=== PATIENT | female | born 1940 | race Caucasian/White ===

== ENCOUNTER → 2019-08-09 11:06 | Outpatient (CLI) | payer MEDICARE, OTHER, SELFPAY ==
--- NOTE | 2019-08-09 11:11 | DI.MG.S_ITS ---
BILATERAL DIGITAL SCREENING MAMMOGRAM 3D/2D WITH CAD: 08/09/2019 CLINICAL: Routine screening. Comparison is made to exams dated: 06/12/2018 mammogram, 06/06/2017 mammogram, and 06/02/2016 mammogram - [facility]. The tissue of both breasts is extremely dense, which lowers the sensitivity of mammography. Current study was also evaluated with a Computer Aided Detection (CAD) system. There is an asymmetry in the right breast middle depth superior region seen on the mediolateral oblique view only. This is more prominent. There is possible architectural distortion associated with the asymmetry. No other significant masses, calcifications, or other findings are seen in either breast. IMPRESSION: INCOMPLETE: NEEDS ADDITIONAL IMAGING EVALUATION The asymmetry in the right breast is indeterminate. Additional views with possible ultrasound are recommended. This exam was interpreted at Station ID: [id number]. NOTE: For mammograms, a report in lay terms will be sent to the patient. Approximately 15% of breast malignancies will not be visualized mammographically. In the management of a palpable breast mass, a negative mammogram must not discourage biopsy of a clinically suspicious lesion. Electronically Signed By: Margarita whalen/:08/09/2019 13:04:38 letter sent: Additional Imaging Needed ACR BI-RADS Category 0: Incomplete [id number]
--- NOTE | 2019-08-09 11:12 | DI.US.S_ITS ---
PROCEDURE: US THYROID INDICATIONS: MULTINODULAR GOITER TECHNIQUE: Real-time scanning was performed of the thyroid gland, with image documentation. COMPARISON: None. FINDINGS: Right: Thyroid lobe measures 4.3 x 1.7 x 1.8 cm, and is homogeneous in echotexture. Left: Absent Isthmus: 4 mm thick. Nodule number: 1 Location: Right interpolar region Size: 1.1 x 0.9 x 1.2 cm. Composition: Predominantly solid Echogenicity: Hypoechoic Shape: wider than tall. Margins: Irregular Echogenic foci: Macrocalcifications Total points: 7 ACR TI-RADS category: Highly suspicious Nodule number: 2 Location: Right mid to inferior pole Size: 1.4 x 0.8 x 1.3 cm. Composition: Predominantly cystic Echogenicity: Hypoechoic Shape: wider than tall. Margins: Smooth Echogenic foci: Punctate Total points: 5 ACR TI-RADS category: Highly suspicious IMPRESSION: A pair of right-sided thyroid cystic and solid nodules. Both of these warrant ultrasound-guided FNA by consensus recommendations below. ACR TI-RADS definitions and recommendations: TI-RADS 1 (benign): 0 points. FNA not needed. TI-RADS 2 (not suspicious): 2 points. FNA not needed. TI-RADS 3 (mildly suspicious): 3 points. * FNA if 2.5 cm or larger, follow up if 1.5 cm or larger (at 1, 3, and 5 years). TI-RADS 4 (moderately suspicious): 4-6 points. * FNA if 1.5 cm or larger, follow up if 1 cm or larger (at 1, 2, 3, and 5 years). TI-RADS 5 (highly suspicious): 7 points or more. * FNA if 1 cm or larger, follow up if 0.5 cm or larger (every year for 5 years). Dictated by: Cristhian Cain M.D. on 08/09/2019 at 17:08 Approved by: Cristhian Cain M.D. on 08/09/2019 at 17:15
== END ==
PROVIDERS: Family Provider Internal Medicine; PCP Internal Medicine; Referring Provider Internal Medicine; Visit Provider Internal Medicine
DX: Z12.31 Encounter for screening mammogram for malignant neoplasm of breast (principal); E04.2 Nontoxic multinodular goiter
CPT/HCPCS: 76536; 77063; 77067

== ENCOUNTER → 2019-09-16 09:56 | Outpatient (CLI) | payer MEDICARE, OTHER, SELFPAY ==
--- NOTE | 2019-09-16 | PATH_ITS ---
Note [facility] Accession Number: [id number] TESTS RESULT FLAG UNITS REF RANGE LAB Clinician Provided Cytology Information No. of containers..00 Previously Prepared Cytology Slide 35 Unknown Storage/container code(s) 01 RIGHT SUPERIOR THYRO Clinician ICD10: Z00.00 I10 R25.2 H91.90 N76.19 G45.9 M19.90 E04.2 E02 E78.5 R73.9 D64.9 DIAGNOSIS: 01 RIGHT SUPERIOR THYROID NODULE NEGATIVE FOR MALIGNANT CELLS. [place] CATEGORY II. SPECIMEN IS OF LOW CELLULARITY AND CONSISTS OF OF BENIGN FOLLICULAR CELLS WITH ABUNDANT COLLOID CONSISTENT WITH A COLLOID NODULE. Pathologist ICD10: E04.1 . Lia Orona MD, Pathologist NPI- [id number] Bill Pop, Dish Washer ([facility]) 01 30 CC, COLORLESS, CLEAR RECIEVED: IN CYTOLYT WITH 5 ALCOHOL FIXED AND 5 QUICK STAINED SLIDES ALSO 1 RNA VIAL WAS RECEIVED FOR FURTHER TESTING. /VDU 09/17/2019 0436 Local FLAG LEGEND: L-Low Normal,H-High Normal,LL-Alert Low,HH-Alert High <-Panic Low,>-Panic High,A-Abnormal,AA-Critical Abnormal Performed at: 01 =Z [facility] [address], [place] [address] Nayan Moore MD, Performed at: 01 [facility] [address], [place], [place] [id number] MD Nayan Moore MD Phone: [phone]
--- NOTE | 2019-09-16 | DI.US.S_ITS ---
PROCEDURE: US FINE NEEDLE ASPIRATION INDICATIONS: RIGHT THYROID NODULES X 2 History of left thyroidectomy. Patient reports benign pathology on the left. TECHNIQUE: The indications, alternatives, benefits, risks, and complications of the procedure were explained to the patient. Written informed consent was obtained and placed in the chart. The area of interest was examined sonographically and a site was chosen for ultrasound guided percutaneous sampling. The skin was prepared and draped in the usual fashion, and anesthetized with 1% lidocaine infiltrated from the skin down to the lesion. Multiple passes were then performed, with contents emptied into an appropriate pathology specimen container. A bandage was applied to the area of access at completion of the study. COMPARISON: [facility], , US THYROID, 08/09/2019, 11:36. [facility], , THYROID, 07/02/2012, 14:54. [facility], , US THYROID, 06/22/2010, 10:53. FINDINGS: Location(s) of lesion(s) sampled: Right intrapolar and right inferior. [place]: 25 gauge hypodermic needles. Number of passes: 5. The right inferior nodule collapsed with aspiration yielded sanguinous fluid. Medications: 1% lidocaine for local anaesthesia. Complications: None. The procedure was difficult with the patient inability to stop swallowing. IMPRESSION: Successful ultrasound-guided fine needle aspiration of two right thyroid nodules, with cytology results pending. Dictated by: Rod Little M.D. on 09/16/2019 at 15:34 Approved by: Rod Little M.D. on 09/16/2019 at 15:38
--- NOTE | 2019-09-16 | DI.MG.S_ITS ---
UNILATERAL RIGHT DIGITAL DIAGNOSTIC MAMMOGRAM 3D/2D WITH ADDITIONAL VIEWS: 09/16/2019 CLINICAL: Additional evaluation requested from prior study. Comparison is made to exams dated: 08/09/2019 mammogram - [facility], 06/12/2018 mammogram, and 06/06/2017 mammogram - [facility]. The tissue of right breast is extremely dense, which lowers the sensitivity of mammography. The asymmetry in the right breast middle depth superior region seen on the mediolateral oblique view only is not seen in additional views. No other significant masses or calcifications are seen in the breast. IMPRESSION: The asymmetry in the right breast seen on the screening mammogram likely respresents superimposed fibroglandular tissue and is benign. There is no mammographic evidence of malignancy. A 1 year screening mammogram is recommended. This exam was interpreted at Station ID: [id number]. NOTE: For mammograms, a report in lay terms will be sent to the patient. Approximately 15% of breast malignancies will not be visualized mammographically. In the management of a palpable breast mass, a negative mammogram must not discourage biopsy of a clinically suspicious lesion. Electronically Signed By: Lynne barriga/:09/16/2019 11:01:35 letter sent: Normal Exam ACR BI-RADS Category 2: Benign Finding(s) 3342F
== END ==
PROVIDERS: Family Provider Internal Medicine; PCP Internal Medicine; Referring Provider Internal Medicine; Visit Provider Internal Medicine
DX: E04.2 Nontoxic multinodular goiter (principal); R92.8 Other abnormal and inconclusive findings on diagnostic imaging of breast; N64.89 Other specified disorders of breast
CPT/HCPCS: 10005; 77065; G0279

== ENCOUNTER → 2020-04-14 11:53 | Outpatient (CLI) | payer MEDICARE, OTHER, SELFPAY ==
[2020-04-14 14:02] LABS: Add Manual Diff / Slide Review NO; Basophils Absolute Auto 0 /uL (0-100); Basophils Percent Auto 0.9 % (0-2); Eosinophils Absolute Auto 100 /uL (0-450); Eosinophils Percent Auto 2.2 % (2-4); Hematocrit 37.3 % (36-46); Hemoglobin 12.6 g/dL (12.0-16.0); Lymphocytes Absolute Auto 900 /uL (1100-4500); Lymphocytes Percent Auto 16.7 % (25-40); Mean Corpuscular HGB Conc 33.8 % (30-36); Mean Corpuscular Hemoglobin 32.8 PG (26-34); Mean Corpuscular Volume 97.1 fL (80-100); Monocytes Absolute Auto 300 /uL (0-900); Monocytes Percent Auto 6.1 % (3-14); Neutrophils Absolute Auto 4100 /uL (1500-7000); Neutrophils Percent Auto 74.1 % (50-75); Platelet Count 259 X10^3/uL (150-400); Red Blood Cell Count 3.84 X10^6/uL (4.0-5.2); Red Cell Distribution Width 12.1 % (11.6-14.8); White Blood Cell Count 5.5 X10^3/uL (4.5-11.0)
[2020-04-14 14:14] LABS: Hemoglobin A1C% w Est Avg Glu 5.3 % (4.0-6.0)
[2020-04-14 14:19] LABS: BUN Creatinine Ratio 26.4 (6-22); Blood Urea Nitrogen 14 mg/dL (7-17); Calcium 9.7 mg/dL (8.4-10.2); Carbon Dioxide 29 mmol/L (22-32); Chloride 95 mmol/L (98-107); Estimated Glomerular Filt Rate > 60.0 mL/min (>60); Glucose 95 mg/dL (80-110); HEMOLYSIS < 15 (0-50); Potassium 4.1 mmol/L (3.4-5.1); Sodium 130 mmol/L (137-145)
== END ==
PROVIDERS: Family Provider Internal Medicine; PCP Internal Medicine; Referring Provider Orthopaedic Surgery; Visit Provider Orthopaedic Surgery
DX: Z01.818 Encounter for other preprocedural examination (principal); M25.512 Pain in left shoulder; R73.9 Hyperglycemia, unspecified; Z01.812 Encounter for preprocedural laboratory examination
CPT/HCPCS: 36415; 80048; 83036; 85025; 93005

== ENCOUNTER 2020-04-27 11:31 | Day surgery (SDC) | payer MEDICARE, OTHER, SELFPAY ==
[2020-04-20 09:47] VITALS: BMI 21.1
[2020-04-27] VITALS (13 sets, daily range): BP systolic 120–180; BP diastolic 54–95; PULSE 67–99; RESP 12–20; TEMP 35.8–37.2; O2SAT 96–99; BMI 21.1
--- NOTE | 2020-04-27 06:00 | DI.RAD.S_ITS ---
PROCEDURE: XR KNEE LT 1TO2V INDICATIONS: post op films. TECHNIQUE: 2 view(s) of the knee acquired. COMPARISON: [facility], , KNEE 1-2 VIEWS RIGHT, 08/02/2011, 14:11. FINDINGS: Bones: Patient is status post knee joint arthroplasty. Hardware components are in expected positions. Visualized bony structures are intact. Soft tissues: Overlying postoperative changes are noted. IMPRESSION: Normal alignment after left total knee arthroplasty. Dictated by: Mario Pop M.D. on 04/27/2020 at 16:12 Approved by: Mario Pop M.D. on 04/27/2020 at 16:12
[2020-04-27] MEDS: LACTATED RINGERS 1,000 ML 42 ML IV ×2 (11:56→14:12)
[2020-04-27] MEDS: ACETAMINOPHEN 325 MG TABLET 975 MG PO (12:07)
[2020-04-27] MEDS: MELOXICAM 7.5 MG TABLET 15 MG PO (12:09)
[2020-04-27] MEDS: PREGABALIN 75 MG CAPSULE PO (12:11)
--- NOTE | 2020-04-27 12:17 | SUR.PREOP ---
Awaiting the Covid results from Dr. Castro' office
[2020-04-27 13:02] LABS: COVID19 -Nasal RAPID Negative (Negative)
--- NOTE | 2020-04-27 13:06 | PM.PREOP ---
Pre-operative Note COVID-19 COVID-19 status: Negative Result date/Date tested (Pos, Neg/Pending): 04/27/20 Interval Note History & Physical reviewed/Exam performed by Physician: Yes Changes to H&P: No
--- NOTE | 2020-04-27 13:07 | PM.OP.1 ---
Operative Date/Time/Diagnoses Date of procedure: 04/27/20 Time of procedure: 14:55 Pre-op diagnosis: Left knee osteoarthritis Post-op diagnosis: same Procedure & Clinicians Procedure: Left total knee replacement Same procedure as scheduled: Yes Indications: The patient has had progressively worsening left knee pain with radiographic changes consistent with arthritis. Non-operative management has failed and the patient has requested total knee replacement. The risks, benefits and alternatives to surgery were discussed with the patient prior to proceeding. Risks discussed included, but were not limited to, failure to relieve pain, stiffness, infection, nerve damage, deep venous thrombosis, pulmonary embolism, stroke, coma, heart attack, permanent paralysis and , as well as the potential need for eventual revision of the prosthetic. Surgeon: Davin Castro V Block Saw Operator: Yvette Benjamin Anesthesia Type: General, Spinal and Local Operative Notes Findings: Severe medial and moderate patellofemoral osteoarthritis. Closure Type: primary Specimen(s): none sent Prosthetic devices, grafts, tissues, transplants, or devices: Implants used in this procedure were manufactured by the [employer] and [employer] and included the BCS II Journey total knee replacement with a size 5 cobalt chromium femur, size 4 left non porous tibial base plate, a 9 mm cross-linked polyethylene tibial insert and a 32 mm oval Maria Luisa II patellar component. Applied: implant(s) Estimated Blood Loss (mL): 25 Blood products transfused: none Tourniquet time (min): 46 Procedure in detail: The patient was seen in the pre-operative area, where the left knee was identified as the operative site and this was marked with my initials. The patient received pre-operative antibiotics, and was taken to the operating room and placed on the operative table in the supine position. After satisfactory anesthesia, a flight crew time clerk out was performed. The left leg was encircled with a tourniquet about the proximal thigh, and the leg was prepared from the toes to the tourniquet with ChloroPrep in the usual fashion and draped through sterile drapes. The leg was elevated and exsanguinated with Eschmark bandage and the tourniquet inflated to 250 mmHg pressure. The knee was approached through an approximately 18 cm incision centered over the patella and carried into the knee through a medial parapatellar arthrotomy. The anterior osteophytes and soft tissues were removed. The rotational landmarks of Jayuya's line and the transepicondylar axis were marked on the femur with electrocautery, and intramedullary guide holes for the femur and tibia were created. The distal femoral cut was made in 6 degrees of valgus using the intramedullary guide at the primary cut setting. The proximal tibial cut was then made using the intramedullary guide, taking 9 mm of bone off the less involved side. The extension gap was checked and the rotation of the femoral component confirmed with the gap balancing blocks. The anterior, posterior and chamfer cuts were then made. The posterior osteophytes and soft tissues were then removed. The posterior capsule was injected with part of a mixture of 55 ml 0.25% Marcaine mixed with 20 ml Exparel and 4 mg of morphine for post-operative pain control. The remainder of this mixture was injected into the capsule and subcutaneous tissues during cement curing. The tibia was prepared with the rotation set by an extra medullary guide. Trial tibial and femoral components were then placed and the intercondylar notch cut through the femoral trial. Range of motion was 0-135 degrees, with good stability throughout the range. The patella was then cut to accommodate the patellar prosthetic. There was no need for a lateral release. The trials were then removed, and the femoral hole plugged with a bone plug. The bone was prepared with pulsatile lavage, and dried with a sponge. Cement was applied and the final prosthetics placed. Excess cement was removed during and after cement curing. After confirming there was no extruded cement posteriorly, the final tibial insert was placed. The knee was copiously irrigated and the tourniquet deflated. Hemostasis was obtained. The capsule was closed with interrupted # 2 polyester sutures. The subcutaneous layer was closed with 3-0 Vicryl, and the skin with a running 3-0 V-Lock suture and Dermabond. An Aquacel Ag dressing was applied and the patient was taken to recovery having tolerated the procedure well. Complications: none Post-operative Condition: stable Disposition: PACU Plan for aftercare: The patient will be maintained on a standard total knee replacement protocol with weight bearing as tolerated. The patient will receive aspirin and sequential compression devices for DVT prophylaxis. The patient will be discharged home when safe for the home environment.
[2020-04-27] MEDS: CEFAZOLIN 2 GM/100 ML FROZ.PIGGY IV (13:15)
--- NOTE | 2020-04-27 13:38 | SUR.OPER ---
Supine on padded OR bed. Pillow under head, arms secured on padded armboards <90 degree abduction. Safety belt across torso. Non-operative leg secured with tape over blanket over lower leg. Operative leg secured in [place]/Prosper positioner. Foam padded brace at thigh of operative leg.
[2020-04-27] MEDS: TRANEXAMIC ACID 1,000 MG VIAL 1000 MG IV ×2 (13:43→14:13)
[2020-04-27] MEDS: BUPIVACAINE 0.25% W/ EPI (PF) 10 ML VIAL 20 ML INJ (13:44)
[2020-04-27] MEDS: BUPIVACAINE LIPOSOME 266 MG/20 ML VIAL INJ (13:45)
[2020-04-27] MEDS: MORPHINE 4 MG/ML INJ INJ (13:45)
--- NOTE | 2020-04-27 15:17 | SUR.PHASEI ---
Report given to AASHISH Vick and care hodan.
[2020-04-27] MEDS: LACTATED RINGERS 1,000 ML 100 ML IV (16:06)
--- NOTE | 2020-04-27 16:57 | PC.NURSE ---
Addendum entered by Yennifer Shah R.N. 04/27/20 20:59: Pt watching TV, denies discomfort. Dsg remains CDI IVF continue as per orders. SCD in place. Satisfactory post op course. Call light w/in reach, bed alarm on for pt safety. Continue w/plan of care. Original Note: Arrived from PACU @ 1550 Alert, oriented. Denies discomfort at this time. Aquacell/brady dsg to left knee CDI. Lungs clear, SpO2 96% RA Stable post op course. Calll light w/in reach, bed alarm on for pt safety.
--- NOTE | 2020-04-27 18:10 | PT.IIE ---
Current Diagnoses Unilateral primary osteoarthritis, left knee (04/27/20) Surgery Performed Operation Date: 04/27/20 12:45 Actual Procedures p Total Knee Arthroplasty(Left) - Davin Castro MD Surgical History (Last Updated 04/20/20 @ 10:10 by Analy Slater, RN) History of arthroplasty of right knee (2011) History of colonoscopy History of lumbar surgery (2002) History of lumpectomy of left breast History of tonsillectomy and adenoidectomy Hx of arthroscopy of right knee (2008) Hx of bilateral cataract extraction Hx of left breast biopsy Hx of partial thyroidectomy (2006) Medical History (Last Updated 04/20/20 @ 10:14 by Analy Slater, RN) Arthritis Detached retina, bilateral DJD (degenerative joint disease) Dry eyes Easy bruisability HLD (hyperlipidemia) HTN (hypertension) Impaired hearing Seasonal allergies TIA (transient ischemic attack) (~2002) Physical Therapy Inpatient Evaluation/Re-Eval M1 PT/OT-IP Prior Functional Status Start: 04/27/20 17:59 Freq: NEEDED Status: Active Protocol: Document 04/27/20 17:59 [facility] (Rec: 04/27/20 18:10 [facility] [id number]) Medical Review Prior Functional Status Medical History Reviewed Yes Diet/Fluid Consistency Regular Communication AKHIOK Mobility and Gait Pt indep with ADLs and with mobility without AD Activities of Daily Living and IADL's indep & does most of cooking at home Social History Household Members spouse Living Arrangements House Number of Floors (Floors) 3 or More Floors Number of Stairs To Enter/Railing? 2 TRAY w/ rail; pt does not need to use basement or upper level of home Home Environment Standard Height Toilet,Walk in Shower Home Equipment Straight Cane,Raised Toilet Seat Without Armrests,Shower Seat without Backrest Additional Social History Comment Pt has standard walker M2 PT-IP Current Condition Start: 04/27/20 17:59 Freq: NEEDED Status: Active Protocol: Document 04/27/20 17:59 [facility] (Rec: 04/27/20 18:10 [facility] [id number]) Physical Therapy Current Condition Current Condition Evaluation Date 04/27/20 Treatment Diagnosis L TKA Onset Date 04/27/20 Weight Bearing Status Weight Bearing Status Weight Bear as Tolerated M3 PT-IP Subjective Start: 04/27/20 17:59 Freq: NEEDED Status: Active Protocol: Document 04/27/20 17:59 [facility] (Rec: 04/27/20 18:10 [facility] [id number]) Subjective Physical Therapy Visit Type Type Initial Evaluation Visit Start Time 17:20 Visit Stop Time 17:55 Total Visit Minutes 25 Number of PRODUCT SUPPORT CONSULTANT Visits 0 Physical Therapy Visit Comments Patient Comments Pt and note they plan to have her return home once she is ready but no goyal. Therapy Pain Assessment Pain When Pain Assessed During Mobility Pain Present Pain Present Pain Reported Location L knee Scale Used minor Pain Management Techniques Apply Cold M4 PT-IP Mobility and Gait Start: 04/27/20 17:59 Freq: NEEDED Status: Active Protocol: Document 04/27/20 17:59 [facility] (Rec: 04/27/20 18:10 [facility] [id number]) PT-Bed Mobility Assessment Supine to Sit Supine to Sit Standby Assistance,Head of Bed Elevated Scooting Scooting to Edge of Bed Standby Assistance PT-Transfer Assessment Sit to and From Stand Sit to and from Stand Contact Guard Assistance,Use of Upper Extremities Equipment Transfer Assistive Device Gait Belt,Standard Walker Orthotic/Prosthetic Devices or Brace: No Transfers Transfer Destination Bedside Commode Transfer Technique Stand Step Pivot Transfer Ability Level of Assist Contact Guard Assistance Comments Mobility Comments Pt sat up EOB with HOB elevated quickly and encourage to sit at EOB for a min to allow for body to adjust. BP 153/75-minor ligthheadedness noted but resolved. Pt transfered w/ cueing for pushing from bed & cueing for hand and knee position for sitting. Pt's walker was adjsuted to appropriate height while pt voided. Pt able to wipe indep and stood CGA to FWW an damb 5 ft to wash hands and stood at sink reaching safely then amb with FWW CGA back to chair noting some lightheadedness. BP 140/70. Pt able to don underwear indep with cueing for sequence then stood CGA to pull up indep. Pt left with call light in reach Gait Assessment Gait Gait Assistance Required: Contact Guard Assist Distance (Feet) 10 Able to Maintain Weight Bearing Status Yes During Gait Assistive Devices Assistive Device Gait Belt,Standard Walker Gait Deviations General Gait Pattern Antalgic Factors Limiting Gait Function Factors Limiting Gait Function Decreased Activity Tolerance, Decreased Strength,Limited Range of Motion,Pain,Poor Balance Comments Gait Comments see above Stair Climbing Assessment Comments Stair Climbing Comments not assessed PT-Balance Assessment Sitting Balance and Reactions Static Sitting Balance Ability Normal Dynamic Sitting Balance Ability Normal Standing Balance and Reactions Static Standing Balance Ability Good Dynamic Standing Balance Ability Fair Device Used FWW M5 PT-IP Objective Assessments Start: 04/27/20 17:59 Freq: NEEDED Status: Active Protocol: Document 04/27/20 17:59 [facility] (Rec: 04/27/20 18:10 [facility] [id number]) Orientation Orientation/Cognition Level of Alertness Alert Language Function Ability No Deficits Noted Safety Awareness Understands Safety Issues Memory Description No Deficits Noted Gross Range of Motion Lower Extremity ROM Assessment Left Impaired Impairments about 3-90 (seated flex testing) Strength Upper Extremity Strength Assessment Within Functional Limits Lower Extremity Strength Knee grossly 3/5 Ankle grossly 4/5 M6 PT-IP Treatment Start: 04/27/20 17:59 Freq: NEEDED Status: Active Protocol: Document 04/27/20 17:59 [facility] (Rec: 04/27/20 18:10 [facility] [id number]) Physical Therapy Treatment Exercises Exercises Ankle Pumps,Quad Sets Education Education Provided Post-Op Packet,Safety M7 PT-IP Assessment and Plan Start: 04/27/20 17:59 Freq: NEEDED Status: Active Protocol: Document 04/27/20 17:59 [facility] (Rec: 04/27/20 18:10 [facility] [id number]) PT Summary Assessment and Plan Potential Rehabilitation Potential Excellent Status of Condition at Evaluation Evolving Summary Impairments Pain,ROM,Strength,Balance,Bed Mobility,Transfers,Gait, Activity Tolerance Assessment Summary Pt presents day of L TKA with good performance on mobility with CGA only needed along with cueing. pt brougth standard walker and was trained on that as that is what she will use at home. She had some lightheadedness during moblity but BP did not drop significantly. She is very motivated to do well and showed understanding w/quad sets and APs. Pt would benefit from skilled PT to work on gait, mobility, and safety after TKA prior to returning home. Goals Bed Mobility Goal Independent Transfer Goal Independent Gait Goal Standby Assistance Gait Distance 150ftw/standard walker Other Goals up/down 2 steps with rail SBA Days to Meet Goals 4 Frequency of Treatment Frequency Of Treatment Twice a Day Treatment Plan Physical Therapy Treatment Plan Bed Mobility Training,Transfer Training,Gait Training, Therapeutic Exercise,Post Op Education,Discharge Planning, Neuromuscular Re-ed,Manual Therapy Other Recommendations and Next Treatment work on gait & work on stairs Focus if pt can, review all exercises Recommendations To Nursing Amount of Assist Needed 1 Person Assist Discharge Recommendations PT Discharge Recommendations Home with Assistance, Outpatient PT Transportation Needs at Discharge Private Vehicle
[2020-04-27] MEDS: ASPIRIN EC 81 MG TABLET PO (20:24)
[2020-04-27] MEDS: ACETAMINOPHEN 325 MG TABLET 650 MG PO (20:24)
[2020-04-27] MEDS: DOCUSATE 100 MG CAPSULE PO (20:24)
[2020-04-27] MEDS: PRAVASTATIN 20 MG TABLET 40 MG PO (20:25)
[2020-04-27] MEDS: SPIRONOLACTONE 25 MG TABLET PO (20:25)
--- NOTE | 2020-04-28 00:57 | PC.NURSE ---
Addendum entered by Karen Ruvalcaba R.N. 04/28/20 06:15: Complains of 4/10 left knee pain. Chart indicates Oxycodone adverse reaction although patient is uncertain that she has had reaction in past. Due to uncertainty, patient medicated with Vicodin rather than Percocet and ice pack applied to knee. Original Note: 9140 Patient is alert and oriented. [place] but states she left hearing aids at home. Breath sounds CTA with RA sat of 99%; on continuous oximetry. HRR. BP 140/63 but has been trending high. Denies nausea. BT present and abdomen is soft but denies having passed any flatus as yet. Chronic urinary frequency but denies dysuria or urgency. Is able to move herself in bed. Up to bathroom with walker and SBA. Aquacel dressing covered with brady wrap is CDI. CMS intact bilaterally. Does complain of 3/10 pain in left knee but declined offer of pain medicatioin at this time; ice pack applied. Wearing bilateral calf SCD's. Fall risk score is moderate and bed alarm is activated.
[2020-04-28] MEDS: LACTATED RINGERS 1,000 ML 100 ML IV (01:26)
[2020-04-28] MEDS: HYDROCODONE/ACET 5/325 TABLET 1 TAB PO ×2 (05:37→10:48)
[2020-04-28 05:55] VITALS: BP 139/63; PULSE 74; RESP 16; TEMP 36.8; O2SAT 97
[2020-04-28 06:24] LABS: Hematocrit 30.4 % (36-46); Hemoglobin 10.2 g/dL (12.0-16.0)
[2020-04-28 07:00] VITALS: BP 135/68; PULSE 68; RESP 16; TEMP 36.4; O2SAT 98
--- NOTE | 2020-04-28 08:12 | P.DS_ITS ---
History of Present Illness History of Present Illness Date Patient Seen: 04/28/20 Time Patient Seen: 08:12 Chief complaint: Left Total Knee Arthroplasty Narrative: The history and physical is contained in the chart previously completed note. Please refer to that note for this information. Discharge Providers Provider Date of admission: 04/27/20 Discharge Date: 04/28/20 Primary care physician: Nely Conley MD Consults: 04/27/20 15:54 Consult to Discharge Planning Routine Comment: Consult to Physical Therapy Evaluate & Treat Comment: Physician Instructions: postop TKA protocol Discharge provider: Davin Castro MD Summary Hospital Course Discharge Diagnosis: 1. Left knee osteoarthritis 2. Post hemorrhagic anemia Hospital Course: The patient was admitted to the hospital and taken directly to the operating room on April 27, 2020. She underwent a left total knee replacement without complications. She was comfortable overnight and able to make multiple trips to the bathroom without difficulty. Status at Discharge Functional status at discharge: uses cane/walker Overall status at discharge: patient is progressing back to baseline Time Spent with Patient Time spent: Less than 30 minutes Exam Vital Signs (past 8 hours): - 04/28/20 05:55 Temperature 98.3 F Pulse Rate 74 Respiratory Rate 16 Blood Pressure 139/63 Pulse Oximetry 97 Oxygen Delivery Method Room Air Oxygen Flow Rate 0 Narrative Exam Narrative: Left knee wound is dressed with no drainage on the bandage. Calf is soft. Light touch and motion are intact in the left lower extremity. Objective Labs Result Diagrams: 04/28/20 06:15 Labs: Laboratory Results - last 24 hr 04/27/20 04/28/20 12:32 06:15 Hgb 10.2 L Hct 30.4 L COVID-19 PCR Negative PFSH Medical History (Updated 04/20/20 @ 10:14 by Analy Slater RN) Arthritis Detached retina, bilateral DJD (degenerative joint disease) Dry eyes Easy bruisability HLD (hyperlipidemia) HTN (hypertension) Impaired hearing Seasonal allergies TIA (transient ischemic attack) (~2002) Surgical History (Updated 04/20/20 @ 10:10 by Analy Slater RN) History of arthroplasty of right knee (2011) History of colonoscopy History of lumbar surgery (2002) History of lumpectomy of left breast History of tonsillectomy and adenoidectomy Hx of arthroscopy of right knee (2008) Hx of bilateral cataract extraction Hx of left breast biopsy Hx of partial thyroidectomy (2006) Social History household members: spouse Smoking Status: Never smoker alcohol intake: current Discharge Assessment & Plan Assessment and Plan Assessment: Stable postoperative day 1 status post left total knee replacement. She has a mild, anticipated, post hemorrhagic anemia. She is moving well and her pain control has been excellent. Plan of Treatment: Discharge today with follow-up in 2 weeks in my office. Discharge prescriptions for hydrocodone are on the chart. DVT prophylaxis will be with her Plavix supplemented by aspirin. Discharge Plan Discharge Plan Patient Disposition: Home Discharge orders & Medications Discharge Orders: Discharge (Order); Ordered 04/28/20 Ordered By: Davin Castro Prescriptions: New hydrocodone-acetaminophen 5-325 mg Tablet 1 - 2 tab PO Q4HR PRN (Reason: Pain, Severe (7-10)) Qty: 40 RF: 0 aspirin 81 mg Tablet,Delayed Release (Dr/Ec) 81 mg PO BID 42 Days Qty: 84 RF: 0 Continued clopidogrel [Plavix] 75 mg Tablet 75 mg PO DAILY Qty: 0 RF: 0 multivitamin Tablet 1 tab PO DAILY Qty: 0 RF: 0 pravastatin [Pravachol] 40 mg Tablet 40 mg PO BEDTIME RF: 0 spironolactone 25 mg Tablet 25 mg PO BID RF: 0 fluticasone propionate [Flonase Allergy Relief] 50 mcg/actuation [place],Suspension 1 spray INTRANASAL DAILY PRN (Reason: Seasonal allergies) RF: 0 carboxymethylcellulose sodium 1 % Drops, Liquid Gel 1 drp EYE-BOTH TID RF: 0 aspirin 81 mg Tablet 81 mg PO BID RF: 0 glucosamine sulfate 1,000 mg Capsule 2,000 mg PO BID RF: 0 Discontinued acetaminophen 500 mg Tablet 500 mg PO SEEINSTR RF: 0 Follow up/Referrals: Nely Cnoley MD [Primary Care Provider] - Davin Castro MD [Physician] - 2 Weeks Diet/Activity/Treatments Diet: Diet as Tolerated and Regular Activity: You may bear weight as tolerated on your left leg. Cold/Heat Therapy: Apply ice to the left knee for 15 minutes every hour as needed for pain control. Skin/Wound/Dressing Care Report to your healthcare provider any signs of infection, such as:: chills, fever, night sweats, increased pain, unusual drainage and unusual redness Dressing: You may remove the Hai wrap 3 days after surgery and shower normally with the deeper dressing in place. Leave the deeper dressing in place until follow-up. If the central strip of the deeper dressing becomes saturated with either water or blood, please call the office to have it evaluated. Visit Report/Discharge Packet Instructions: DI for Knee Replacement Stand Alone Forms: Surgery Discharge Discharge Data Primary Care Provider: Nely Conley Attending Provider: Davin Castro
[2020-04-28] MEDS: ASPIRIN EC 81 MG TABLET PO (08:35)
[2020-04-28] MEDS: ACETAMINOPHEN 325 MG TABLET 650 MG PO (08:35)
[2020-04-28] MEDS: SPIRONOLACTONE 25 MG TABLET PO (08:36)
[2020-04-28] MEDS: DOCUSATE 100 MG CAPSULE PO (08:36)
--- NOTE | 2020-04-28 09:15 | PT.IPTN ---
Current Diagnoses Unilateral primary osteoarthritis, left knee (04/27/20) Surgery Performed Operation Date: 04/27/20 12:45 Actual Procedures p Total Knee Arthroplasty(Left) - Davin Castro MD Physical Therapy Treatment Note M2 PT-IP Current Condition Start: 04/27/20 17:59 Freq: NEEDED Status: Active Protocol: Document 04/27/20 17:59 [facility] (Rec: 04/27/20 18:10 LR [email or web address]) Physical Therapy Current Condition Current Condition Evaluation Date 04/27/20 Treatment Diagnosis L TKA Onset Date 04/27/20 Weight Bearing Status Weight Bearing Status Weight Bear as Tolerated M3 PT-IP Subjective Start: 04/27/20 17:59 Freq: NEEDED Status: Active Protocol: Document 04/28/20 09:15 AB (Rec: 04/28/20 11:23 AB [email or web address]) Subjective Physical Therapy Visit Type Type Treatment Note Visit Start Time 09:15 Visit Stop Time 09:54 Total Visit Minutes 39 Number of QM NURSE Visits 0 Physical Therapy Visit Comments Patient Comments pt is agreeable to do PT Therapy Pain Assessment Pain When Pain Assessed At Rest Pain Present Pain Present Pain Reported Location L knee Intensity 3 Scale Used Numeric (0 - 10) Pain Management Techniques Apply Cold,Distraction, Modification of Treatment,Re- positioning,Timing of Activity with Medications M4 PT-IP Mobility and Gait Start: 04/27/20 17:59 Freq: NEEDED Status: Active Protocol: Document 04/28/20 09:15 AB (Rec: 04/28/20 11:23 AB [email or web address]) PT-Bed Mobility Assessment Rolling Level of Assist Standby Assistance Supine to Sit Supine to Sit Standby Assistance Sit to Supine Sit to Supine Standby Assistance Scooting Scooting to Edge of Bed Standby Assistance Scooting Up and Down in Bed Standby Assistance PT-Transfer Assessment Sit to and From Stand Sit to and from Stand Standby Assistance Equipment Transfer Assistive Device Gait Belt,Standard Walker Orthotic/Prosthetic Devices or Brace: No Comments Mobility Comments completed supine to sit SBA, sit to stand SBA. ambulated in room using std walker and agreed to walk out in the hallway SBA. completed up/ down steps with B rails SBA/ pt stated that she has 1 rail on R and a ledge on L but has hold on to for support. ambulated back to room using std walker SBA. completed sit to supine SBA. reviewed HEP with pt and completed. positioned in bed. call light and table placed within reach . Gait Assessment Gait Gait Assistance Required: Standby Assistance Distance (Feet) 75 Able to Maintain Weight Bearing Status Yes During Gait Assistive Devices Assistive Device Gait Belt,Standard Walker Orthotic/Prosthetic Devices or Brace: No Gait Deviations General Gait Pattern Antalgic,Decreased Stride Length Factors Limiting Gait Function Factors Limiting Gait Function Decreased Strength,Pain,Poor Balance,Poor Safety Awareness Stair Climbing Assessment Evaluation Level of Assist On Stairs Standby Assistance Devices Stair Climbing Assistive Devices Left Railing,Right Railing Technique/Endurance Stair Climbing Direction Ascend and Descend Stair Climbing Technique Step to Step Number of Steps Climbed 3 Stair Climbing Set # Repetitions (reps) 2 M5 PT-IP Objective Assessments Start: 04/27/20 17:59 Freq: NEEDED Status: Active Protocol: Document 04/27/20 17:59 [facility] (Rec: 04/27/20 18:10 [facility] [email or web address]) Orientation Orientation/Cognition Level of Alertness Alert Language Function Ability No Deficits Noted Safety Awareness Understands Safety Issues Memory Description No Deficits Noted Gross Range of Motion Lower Extremity ROM Assessment Left Impaired Impairments about 3-90 (seated flex testing) Strength Upper Extremity Strength Assessment Within Functional Limits Lower Extremity Strength Knee grossly 3/5 Ankle grossly 4/5 M6 PT-IP Treatment Start: 04/27/20 17:59 Freq: NEEDED Status: Active Protocol: Document 04/28/20 09:15 AB (Rec: 04/28/20 11:23 AB [email or web address]) Physical Therapy Treatment Exercises Exercises Ankle Pumps,Quad Sets,Heel Slides,Straight Leg Raises, Short Arc Quads,Passive Knee Extension Hang Education Education Provided Safety M7 PT-IP Assessment and Plan Start: 04/27/20 17:59 Freq: NEEDED Status: Active Protocol: Document 04/28/20 09:15 AB (Rec: 04/28/20 11:23 AB [email or web address]) PT Summary Assessment and Plan Potential Rehabilitation Potential Good Summary Impairments Pain,ROM,Strength,Balance, Coordination,Sensation,Tone, Cognition,Bed Mobility, Transfers,Gait,Activity Tolerance Progress Towards Goals Progressing Toward Goals Assessment Summary pt requiring SBA with mobility and plans to go home with spouse to assist her. pt is set up for out pt PT. pt plans to go home later today and may go home when medically stable. Goals Bed Mobility Goal Independent Transfer Goal Independent Gait Goal Standby Assistance Gait Distance 150ftw/standard walker Other Goals up/down 2 steps with rail SBA Days to Meet Goals 4 Frequency of Treatment Frequency Of Treatment Twice a Day Treatment Plan Physical Therapy Treatment Plan Bed Mobility Training,Transfer Training,Gait Training, Therapeutic Exercise,Post Op Education,Discharge Planning, Neuromuscular Re-ed,Manual Therapy Recommendations To Nursing Amount of Assist Needed 1 Person Assist Discharge Recommendations PT Discharge Recommendations Home with Assistance, Outpatient PT Transportation Needs at Discharge Private Vehicle
--- NOTE | 2020-04-28 12:01 | PC.NURSE ---
Pt ambulating with sba to bathroom, gait steady; this RN instructed patient and pt's regarding fall prevention, rx medication side effects, and f/u care; Aquacell to left knee c/d/i; ls clear, IS 1300; pt instructed to deep breath 5 X/hour; pain medication administered for mild to moderate pain; d/c via wheelchair to private vehicle with personal belonging in hand
--- NOTE | 2020-04-28 13:35 | CM.DANOTE ---
Discharge Planning/Care Management DCP: assessment: initiated: case received, EMR reviewed and d/c order noted. Discussed in Team Rounds. PT planned to see pt this morning. Payer: Medicare and [employer]. Pt admitted 04/27 for scheduled LTKA surgery: Surgeon: Dr. Castro. A check in now shows that pt was cleared by PT and went home in company of hr spouse at about 1200. No concerns re the dc today were noted by the care team members. CM Discharge Assessment Start: 04/28/20 13:34 Freq: Status: Active Protocol: Document 04/28/20 13:34 ITV (Rec: 04/28/20 13:35 ITV [id number]) Discharge Planning Assessment Advance Directives? Yes Advance Directives on File Yes History Provided By Medical Record Prior Living Arrangements House Household Members spouse Discharge Plan Home Pre-Anesthesia Assessment Start: 04/20/20 09:47 Freq: Status: Complete Protocol: Document 04/20/20 09:47 CAB (Rec: 04/20/20 10:49 CAB [id number]) Pre-Anesthesia Assessment Patient Information Reviewed Via Phone Assessment Assessment Completed With Patient Diagnostic Results BMP/CMP,CBC,EKG Comment Labs/EKG @ [facility], COVID screen @ [facility] 04/24/20 Primary Care Provider Nely Conley Seen Specialist in Last 12 Months Yes Specialist Seen Orthopedist,Other Comment Rheumatology Primary Language Welsh Community Development Manager Required No Height 165.1 cm Weight 57.606 kg Body Mass Index (BMI) 21.1 Hearing Ability Hard of Hearing,Use of Hearing Aid Visual Assist None Dentition Type Teeth, Natural Present,Partial - Lower Barriers to Learning Auditory Hx Anesthesia Reactions No Hx Family Anesthesia Reaction No Hx Malignant Hyperthermia No Hx Blood Transfusions Yes: s/p partial thyroidectomy Hx Blood Transfusion Reaction No Anesthesia Review Requested No alcohol intake current alcohol intake frequency 3 or more drinks per day Alcohol Intake Frequency Other: 3-4 daily Smoking Status Never smoker Substance Use Type does not use Pain Present Pain Reported Musculoskeletal Symptoms Abnormal Gait,Back Pain, Difficulty Walking,Joint Pain, Neck Pain History of Falling (Recent or History of No ) Patient is completely paralyzed or No completely immobile Mental Status Oriented to own ability Is patient on oxygen? No Does patient have HERNADEZ/SOB No Hx Sleep Apnea No Currently Taking a Beta Roxy No Can You Climb a Flight of Stairs Without Yes SOB Hx Chest Pain No Hx SOB No Hx Syncope or Dizziness No Anti-Coagulant Therapy Yes: Plavix-advised to hold 5 days per PCP and Surgeon. Has a Independent Consultant No Cardiac Testing No Hx Pacemaker/ICD No Pacemaker Rep Required? No Cardiac Clearance Received Not Applicable Comment Pt states Surgeon advised her to take ASA 81mg BID while off Plavix Diet Type At Home Regular dysphagia No Urinary Catheter Present No Hx Urinary Self Catheterization No Diabetes No Patient No Lactating No Hx Drug Resistant Organism No Presence of External or Internal Medical Yes: Rm eye lens, right knee Devices Have you had any close contact with No someone diagnosed with COVID-19? Marital Status Lives With spouse Prior Living Arrangements House Number of Floors (Floors) 3 or More Floors Support System Spouse Does the Patient Have Assistance After Yes Surgery Patient Discharge Plan Description Return Home Comment Pt advised 1-2 night length of stay per surgeon Feels Safe in Current Environment Yes Been Physically Hurt or Threatened By a No Person in Current Environment Do you have thoughts of harming yourself None or others? Are you currently considering suicide? No Do you have a plan to hurt yourself or No Plan others? Do You Have Any Spiritual Beliefs That No May Affect Your HC Choices? Do You Have Any Cultural Practices That No May Affect Your HC Choices? Comment Amish Who Can We Speak to About Patient's Care Family, friends Identifying Code for Release of Patient Declines to issue Information Health Care Proxy/Next of Kin Giancarlo () Health Care Proxy or [phone] Emergency Contact Name Giancarlo () Emergency Contact or [phone] Advance Directives? Yes Advance Directives on File Yes Power of Bowling Floor Manager Yes Power of Bowling Floor Manager Name Giancarlo () Power of Bowling Floor Manager or [phone] PAC Instructions Do not shave/clip surgical site,Durable medical equipment ,Medications to take/avoid, Nasal antibiotic,No ETOH/ petroleum product on skin DOS, NPO,Pre-surgical wash,Sensory aids,Sturdy shoes/comfortable clothes,Do not bring valuables and remove jewelry
== END 2020-04-28 11:30 | disposition home or self-care (01) ==
LOC: OR 11:32 → AC 11:37
PROVIDERS: Family Provider Internal Medicine; PCP Internal Medicine; Referring Provider Orthopaedic Surgery; Visit Provider Orthopaedic Surgery
PROC: 0SRD0JZ Replacement of Left Knee Joint with Synthetic Substitute, Open Approach (ICD-10-PCS; CPT 27447; principal; 2020-04-27 12:45)
DX: M17.12 Unilateral primary osteoarthritis, left knee (principal); I10 Essential (primary) hypertension; Z86.73 Personal history of transient ischemic attack (TIA), and cerebral infarction without residual deficits
CPT/HCPCS: 27447; 36415; 73560; 85014; 85018; 87635; 97110; 97116; 97162; 97530; C1776; C9290; J0690; J1100; J2250; J2270; J2274; J2405; J2704; J3010

== ENCOUNTER → 2020-08-13 11:07 | Outpatient (CLI) | payer MEDICARE, OTHER, SELFPAY ==
[2020-04-27 15:46] VITALS: BMI 21.1
--- NOTE | 2020-08-13 | DI.MG.S_ITS ---
BILATERAL DIGITAL SCREENING MAMMOGRAM 3D/2D WITH CAD: 08/13/2020 CLINICAL: Routine Screening. Comparison is made to exams dated: 09/16/2019 mammogram, 08/09/2019 mammogram - [facility], and 06/12/2018 mammogram - [facility]. The tissue of both breasts is extremely dense, which lowers the sensitivity of mammography. Current study was also evaluated with a Computer Aided Detection (CAD) system. There are benign calcifications in the right breast. No significant masses, calcifications, or other findings are seen in either breast. There has been no significant interval change. IMPRESSION: BENIGN There is no mammographic evidence of malignancy. A 1 year screening mammogram is recommended. This exam was interpreted at Station ID: [id number]. NOTE: For mammograms, a report in lay terms will be sent to the patient. Approximately 15% of breast malignancies will not be visualized mammographically. In the management of a palpable breast mass, a negative mammogram must not discourage biopsy of a clinically suspicious lesion. Electronically Signed By: Margarita whalen/nick:08/13/2020 12:08:43 letter sent: Normal Exam ACR BI-RADS Category 2: Benign Finding(s) 3342F
== END ==
PROVIDERS: Family Provider Internal Medicine; PCP Internal Medicine; Referring Provider Internal Medicine; Visit Provider Internal Medicine
DX: Z12.31 Encounter for screening mammogram for malignant neoplasm of breast (principal)
CPT/HCPCS: 77063; 77067

== ENCOUNTER → 2020-11-23 12:32 | Outpatient (CLI) | payer MEDICARE, OTHER, SELFPAY ==
[2020-04-27 15:46] VITALS: BMI 21.1
== END ==
PROVIDERS: Family Provider Internal Medicine; PCP Internal Medicine; Referring Provider Internal Medicine; Visit Provider Internal Medicine
DX: M85.851 Other specified disorders of bone density and structure, right thigh (principal); Z78.0 Asymptomatic menopausal state; E07.9 Disorder of thyroid, unspecified
CPT/HCPCS: 77080

== ENCOUNTER → 2021-09-29 13:57 | Outpatient (CLI) | payer MEDICARE, OTHER, SELFPAY ==
[2020-04-27 15:46] VITALS: BMI 21.1
--- NOTE | 2021-09-29 | DI.MG.S_ITS ---
BILATERAL DIGITAL SCREENING MAMMOGRAM 3D/2D WITH CAD: 09/29/2021 CLINICAL: Routine screening. Comparison is made to exams dated: 08/13/2020 mammogram, 09/16/2019 mammogram, and 08/09/2019 mammogram - [facility]. The tissue of both breasts is extremely dense, which lowers the sensitivity of mammography. Current study was also evaluated with a Computer Aided Detection (CAD) system. There are benign calcifications in the right breast. No significant masses, calcifications, or other findings are seen in either breast. There has been no significant interval change. IMPRESSION: BENIGN There is no mammographic evidence of malignancy. A 1 year screening mammogram is recommended. This exam was interpreted at Station ID: [id number]. NOTE: For mammograms, a report in lay terms will be sent to the patient. Approximately 15% of breast malignancies will not be visualized mammographically. In the management of a palpable breast mass, a negative mammogram must not discourage biopsy of a clinically suspicious lesion. Electronically Signed By: Bautista Hayward M.D., jr/nick:09/29/2021 15:41:59 letter sent: Normal Exam ACR BI-RADS Category 2: Benign Finding(s) 3342F
== END ==
PROVIDERS: Family Provider Internal Medicine; PCP Internal Medicine; Referring Provider Internal Medicine; Visit Provider Internal Medicine
DX: Z12.31 Encounter for screening mammogram for malignant neoplasm of breast (principal)
CPT/HCPCS: 77063; 77067

== ENCOUNTER → 2021-10-14 10:19 | Outpatient (CLI) | payer MEDICARE, OTHER, SELFPAY ==
[2020-04-27 15:46] VITALS: BMI 21.1
[2021-10-14 12:10] LABS: Albumin 5.4 g/dL (3.5-5.0); BUN Creatinine Ratio 14.8 (6-22); Blood Urea Nitrogen 8 mg/dL (7-17); Calcium 10.3 mg/dL (8.4-10.2); Carbon Dioxide 27 mmol/L (22-32); Chloride 92 mmol/L (98-107); Estimated Glomerular Filt Rate > 60 mL/min (>60); Glucose 96 mg/dL (80-110); HEMOLYSIS < 15 (0-50); Phosphorous 3.5 mg/dL (2.8-4.1); Potassium 4.1 mmol/L (3.4-5.1); Sodium 129 mmol/L (137-145)
[2021-10-14 12:30] LABS: Sodium Urine Random 62 mmol/L (30-90)
[2021-10-15 15:44] LABS: Osmolality Urine 211 mOsmol/kg (.); Osmolality, Serum 266 mOsmol/kg (280-301)
== END ==
PROVIDERS: Family Provider Internal Medicine; PCP Internal Medicine; Referring Provider Internal Medicine Gastroenterology; Visit Provider Internal Medicine Gastroenterology
DX: R93.5 Abnormal findings on diagnostic imaging of other abdominal regions, including retroperitoneum (principal)
CPT/HCPCS: 36415; 80069; 83930; 83935; 84300

== ENCOUNTER → 2021-12-13 10:39 | Outpatient (CLI) | payer MEDICARE, OTHER, SELFPAY ==
[2020-04-27 15:46] VITALS: BMI 21.1
[2021-12-13 12:11] LABS: COVID19 -Nasal RAPID POSITIVE (Negative)
== END ==
PROVIDERS: Family Provider Internal Medicine; PCP Internal Medicine; Visit Provider Surgery
DX: U07.1 COVID-19 (principal)
CPT/HCPCS: 87635; C9803

== ENCOUNTER → 2023-09-28 12:27 | Outpatient (CLI) | payer MEDICARE, OTHER, SELFPAY ==
[2020-04-27 15:46] VITALS: BMI 21.1
--- NOTE | 2023-09-28 12:32 | DI.MG.S_ITS ---
BILATERAL DIGITAL SCREENING MAMMOGRAM 3D/2D WITH CAD: 09/28/2023 CLINICAL: Routine screening. Comparison is made to exams dated: 09/29/2021 mammogram, 08/13/2020 mammogram, and 08/09/2019 mammogram - [facility]. Both breasts are extremely dense, which lowers the sensitivity of mammography (category d />75% glandular tissue). Current study was also evaluated with a Computer Aided Detection (CAD) system. There is a calcification in the right breast central to the nipple anterior depth. This is increased in number. No other significant masses, calcifications, or other findings are seen in either breast. IMPRESSION: INCOMPLETE: NEEDS ADDITIONAL IMAGING EVALUATION The calcification in the right breast is indeterminate, increased in number. Additional views are recommended. Based on the Tyrer Cuzick model (a risk assessment model) the patient's lifetime risk is 0.9% and her 10 year risk is 0.0%. According to the ACR, ACS, and NCCN guidelines, an annual breast MRI exam along with mammogram is recommended if the patient's lifetime risk is 20% or greater. This exam was interpreted at Station ID: [id number]. NOTE: For mammograms, a report in lay terms will be sent to the patient. Approximately 15% of breast malignancies will not be visualized mammographically. In the management of a palpable breast mass, a negative mammogram must not discourage biopsy of a clinically suspicious lesion. Electronically Signed By: Jagdish Krishnan M.D. lc/:09/28/2023 13:53:38 letter sent: Additional Imaging Needed ACR BI-RADS Category 0: Incomplete [id number]
== END ==
PROVIDERS: Family Provider Internal Medicine; PCP Internal Medicine; Referring Provider Internal Medicine; Visit Provider Internal Medicine
DX: Z12.31 Encounter for screening mammogram for malignant neoplasm of breast (principal); R92.343 Mammographic extreme density, bilateral breasts
CPT/HCPCS: 77063; 77067